=== PATIENT | female | born 2000 | race Caucasian/White ===

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

== ENCOUNTER 2022-07-20 12:51 | Emergency (ER) | payer MEDICAID, OTHER ==
[~2022-07-20] VITALS: Ht 170.2 cm; Wt 82.6 kg
--- NOTE | 2022-07-20 13:05 | NUR ---
Patient to ER bed 05 to gown for evaluation. Side rails up.
[2022-07-20 13:06] VITALS: BP_SYST 114
--- NOTE | 2022-07-20 13:07 | NUR ---
Pt brought by self, A&Ox4, pt presents to ER with with headache and head pressure, skin pink and warm, cap refill <3, VSS, will cont to monitor.
--- NOTE | 2022-07-20 13:13 | NUR ---
Dr Galeano evaluating patient at bedside
[2022-07-20] MEDS ORDERED: KETOROLAC TROMETHAMINE 60 MG/2 ML VIAL IM ONE (13:15)
[2022-07-20] MEDS ORDERED: PROCHLORPERAZINE EDISYLATE 10 MG/2 ML VIAL IM ONE (13:15)
--- NOTE | 2022-07-20 13:34 | NUR ---
Pt medicated as ordered, well tolerated
[2022-07-20] MEDS ORDERED: NAPR-688 PO (13:56)
[2022-07-20 14:16] VITALS: BP_SYST 135
--- NOTE | 2022-07-20 14:17 | NUR ---
Patient given written and verbal discharge instructions and verbalizes understanding. ER MD LIEBERMAN discussed with patient the results and treatment provided. Patient in stable condition. ID arm band removed. Rx of NAPROXEN given. Patient educated on pain management and to follow up with PMD. Pain Scale 5/10. Opportunity for questions provided and answered. Medication side effect fact sheet provided.
== END 2022-07-20 14:16 | disposition home or self-care (01) ==
LOC: SED 12:51
DX: G44.209 Tension-type headache, unspecified, not intractable (principal); Z79.899 Other long term (current) drug therapy
CPT/HCPCS: 99284; 96372; J1885; J0780

== ENCOUNTER 2023-03-09 14:21 | Emergency (ER) | payer OTHER ==
[~2023-03-09] VITALS: Ht 165.1 cm; Wt 72.6 kg
[~2023-03-09 14:21] MED LIST changes: +NAPR-688 PO
[2023-03-09 14:29] VITALS: BP_SYST 110; PULSE 70; RESP 20; TEMP 98.1; O2SAT 100
[2023-03-09] MEDS ORDERED: KETOROLAC TROMETHAMINE 60 MG/2 ML VIAL IM ONE (15:00)
[2023-03-09 15:16] LABS: BASOPHILS % (AUTO) 0.4 % (0.0-2.0); EOSINOPHILS % (AUTO) 0.8 % (0.0-4.0); HEMOGLOBIN 12.2 g/dL (12.0-16.0); LYMPHOCYTES # (AUTO) 2.4 K/uL (1.0-5.5); LYMPHOCYTES % (AUTO) 39.3 % (20.5-51.5); MEAN CORPUSCULAR HEMOGLOBIN 27 pg (27-31); MEAN CORPUSCULAR HGB CONC 33 % (32-36); MEAN CORPUSCULAR VOLUME 81 fL (79.0-98.0); MONOCYTES # (AUTO) 0.4 K/uL (0.0-1.0); MONOCYTES % (AUTO) 7.1 % (1.7-9.3); NEUTROPHILS # (AUTO) 3.2 K/uL (1.8-7.7); NEUTROPHILS % (AUTO) 52.4 % (40.0-70.0); PLATELET COUNT (AUTO) 167 K/uL (130-430); RED BLOOD CELL COUNT(AUTO) 4.57 MIL/uL (4.2-6.2); WHITE BLOOD COUNT (AUTO) 6.1 K/uL (4.5-11.0)
[2023-03-09 15:34] LABS: ANION GAP 8 (5-15); CALCIUM 8.8 mg/dL (8.4-11.0); CARBON DIOXIDE 26 mmol/L (23-29); CHLORIDE 103 mmol/L (98-107); CREATININE 0.86 mg/dL (0.55-1.30); GFR AFRICAN AMERICAN 108 mL/min (>90); GLUCOSE 115 mg/dL (74-106); POTASSIUM 3.3 mmol/L (3.5-5.1); SODIUM SERUM 137 mmol/L (136-145); UREA NITROGEN, BLOOD 12 mg/dL (8-21)
[2023-03-09 15:39] LABS: ACETONE, SERUM NEGATIVE (NEGATIVE)
[2023-03-09 15:41] LABS: SERUM HCG (QUALITATIVE) NEGATIVE (NEGATIVE)
[2023-03-09 15:44] LABS: GFR NON AFRICAN-AMERICAN 89 mL/min (>90)
[2023-03-09 15:48] LABS: ALANINE AMINOTRANSFERASE 12 U/L (12-78); ALBUMIN 3.9 g/dL (3.4-4.8); AMYLASE 45 U/L (0-100); ASPARTATE AMINOTRANSFERASE 22 U/L (10-37); LIPASE 117 U/L (73-393); TOTAL BILIRUBIN 0.6 mg/dL (0.0-1.0)
[2023-03-09] MEDS ORDERED: ONDANSETRON 4 MG ODT TAB PO ONE (17:45)
[2023-03-09] MEDS ORDERED: HYDROcodone/ACETAMIN 10-325 MG TAB PO ONE (17:45)
[2023-03-09] MEDS ORDERED: IBUP-1969 PO (18:48)
[2023-03-09] MEDS ORDERED: TRAM50TA2 PO (18:48)
[2023-03-09 18:52] VITALS: BP_SYST 116; PULSE 64; RESP 18; TEMP 98.1; O2SAT 100
== END 2023-03-09 18:52 | disposition home or self-care (01) ==
LOC: SED 14:21
DX: R10.13 Epigastric pain (principal); R11.2 Nausea with vomiting, unspecified; Z79.899 Other long term (current) drug therapy
CPT/HCPCS: 99285; 74176; 80053; 82009; 82150; 84703; 83690; 85025; 36415; 76376; 81025; 96372; 83605; 82397; Q0162; J1885